=== PATIENT | female | born 1945 | race African-American/Black ===

== ENCOUNTER 2016-11-16 19:01 | Inpatient (IN) | payer MEDICARE, OTHER ==
[~2016-11-16] VITALS: Ht 167.6 cm; Wt 102.0 kg
[2016-11-16] MEDS ORDERED: ALBU6.7H PO (19:31)
[2016-11-16] MEDS ORDERED: WARF7.5 PO (19:31)
[2016-11-16] MEDS ORDERED: ADV250 PO (19:31)
[2016-11-16] MEDS ORDERED: POTA10TA PO (19:31)
[2016-11-16] MEDS ORDERED: WARF5TAB6 PO (19:31)
[2016-11-16] MEDS ORDERED: PRED10 PO (19:31)
[2016-11-16] MEDS ORDERED: LEVO125T95 PO (19:31)
[2016-11-16] MEDS ORDERED: CALC0.253 PO (19:31)
[2016-11-16] MEDS ORDERED: SPIR25 PO (19:31)
[2016-11-16] MEDS ORDERED: HYDR25TA84 PO (19:31)
[2016-11-16] MEDS ORDERED: METO50 PO (19:31)
[2016-11-16] MEDS ORDERED: OMEP20CA10 PO (19:31)
[2016-11-16] MEDS ORDERED: FLUO-126 PO (19:31)
[2016-11-16] MEDS ORDERED: FOLI1TAB15 PO (19:31)
[2016-11-16] MEDS ORDERED: FURO40TA5 PO (19:31)
[2016-11-16] MEDS ORDERED: 0.9% SODIUM CHLORIDE 5 ML NEB SOLUTION NEB ONE (19:59)
[2016-11-16] MEDS ORDERED: IPRATROPIUM BROMIDE 0.5 MG/2.5 ML NEB SOLUTION NEB ONE (20:00)
[2016-11-16] MEDS ORDERED: LEVALBUTEROL HCL 1.25 MG/0.5 ML NEB SOLUTION NEB ONE (20:00)
[2016-11-16] MEDS ORDERED: FUROSEMIDE 40 MG/4 ML VIAL IVP ONE (20:00)
[2016-11-16 20:06] LABS: EOSINOPHILS % (AUTO) 0 % (1.0-6.0); HEMATOCRIT 32.1 % (36-46); HEMOGLOBIN 10.4 g/dL (12.0-16.0); LYMPHOCYTES # (AUTO) 0.4 K/uL (1.0-4.8); LYMPHOCYTES % (AUTO) 3.3 % (22.0-44.0); MEAN CORPUSCULAR HEMOGLOBIN 30.5 pg (26.0-34.0); MEAN CORPUSCULAR HGB CONC 32.3 G/dL (31.0-37.0); MEAN CORPUSCULAR VOLUME 94 fL (80-100); MONOCYTES # (AUTO) 0.2 K/uL (0.1-1.0); MONOCYTES % (AUTO) 1.7 % (2.0-9.0); NEUTROPHILS # (AUTO) 12.2 K/uL (1.8-7.7); PLATELET COUNT (AUTO) 279 K/uL (150-450); RED CELL DISTRIBUTION WIDTH 16.8 % (11.5-14.5); WHITE BLOOD COUNT (AUTO) 12.9 K/uL (4.5-11.0)
[2016-11-16 20:13] LABS: ANION GAP 12 mmol/L (8-16); CALCIUM, TOTAL 10.2 mg/dL (8.8-10.5); CARBON DIOXIDE 22 mmol/L (22-29); CHLORIDE 108 mmol/L (98-107); CREATININE 1.48 mg/dL (0.60-1.30); GLOMERULAR FILTR. RATE CALC 42 mL/min (>60); SODIUM SERUM 142 mmol/L (136-145); UREA NITROGEN, BLOOD 20 mg/dL (7-18)
[2016-11-16 20:18] LABS: PROTHROMBIN TIME 31.4 SEC (9.4-11.6)
[2016-11-16 20:19] LABS: ALANINE AMINOTRANSFERASE 23 U/L (12-78); ALBUMIN 3.6 g/dL (3.4-5.0); ASPARTATE AMINOTRANSFERASE 22 U/L (15-37); BILIRUBIN,TOTAL 0.7 mg/dL (0.1-1.0); CREATINE KINASE, TOTAL 63 U/L (26-192); TOTAL PROTEIN, SERUM 7.8 g/dL (6.4-8.2)
[2016-11-16 20:33] LABS: B-TYPE NATRIURETIC PEPTIDE 441 pg/mL (0-100)
[2016-11-16 20:43] LABS: RBC MORPHOLOGY COMMENT NORMAL RBC MORPH
[2016-11-16 21:04] LABS: ADD UA MICROSCOPIC YES; APPEARANCE,URINE CLEAR (CLEAR); GLUCOSE, URINE (UA) NEGATIVE (NEGATIVE); KETONES,URINE NEGATIVE (NEGATIVE); LEUKOCYTE ESTERASE ,URINE NEGATIVE (NEGATIVE); OCCULT BLOOD,URINE TRACE (NEGATIVE); PROTEIN,URINE SEE CONFIRM (NEGATIVE)
[2016-11-16] MEDS ORDERED: 0.9% SODIUM CHLORIDE 10 ML SYRINGE IVP PRN (21:15)
[2016-11-16] MEDS ORDERED: ACETAMINOPHEN 325 MG TABLET PO PRN (21:15)
[2016-11-16] MEDS ORDERED: ONDANSETRON HCL 4 MG/2 ML VIAL IVP PRN (21:15)
[2016-11-16] MEDS: OXYGEN THERAPY IH SCH (21:15)
[2016-11-16] MEDS ORDERED: NITROGLYCERIN 2% (1 GM=INCH) PACKET TP ONE (21:15)
[2016-11-16 21:17] LABS: SULFOSALICYLIC ACID,URINE 2+ (Negative)
[2016-11-16 21:18] LABS: SQUAMOUS EPITHELIAL CELL,UR Moderate /LPF (None Seen)
[2016-11-16 22:27] VITALS: BP 153/91
[2016-11-17] MEDS ORDERED: 0.9% SODIUM CHLORIDE 10 ML SYRINGE IVP PRN (01:00)
[2016-11-17] MEDS ORDERED: ONDANSETRON HCL 4 MG/2 ML VIAL IVP PRN (01:00)
[2016-11-17] MEDS ORDERED: ACETAMINOPHEN 325 MG TABLET PO PRN (01:00)
[2016-11-17] MEDS ORDERED: MAGNESIUM HYDROXIDE SUSPENSION 30 ML UDCUP PO PRN (01:00)
[2016-11-17] MEDS ORDERED: OxyCODONE HCL/ACETAMINOPHEN 5-325 MG TABLET PO PRN ×2 (01:00)
[2016-11-17] MEDS: METOPROLOL TARTRATE 50 MG TABLET PO SCH ×3 (01:42→20:41)
[2016-11-17] MEDS: HydrALAZINE HCL 25 MG TABLET PO SCH ×3 (01:42→20:42)
[2016-11-17] MEDS: DOCUSATE SODIUM 100 MG CAPSULE PO SCH ×3 (01:42→20:41)
[2016-11-17 04:32] VITALS: BP 137/84
[2016-11-17] MEDS: LEVOTHYROXINE SODIUM 125 MCG TABLET PO SCH (06:23)
[2016-11-17 06:58] LABS: ALBUMIN 3.2 g/dL (3.4-5.0); BASOPHILS % (AUTO) 0.1 % (0.0-2.0); BILIRUBIN,TOTAL 0.6 mg/dL (0.1-1.0); CALCIUM, TOTAL 9.8 mg/dL (8.8-10.5); CREATININE 1.63 mg/dL (0.60-1.30); EOSINOPHILS % (AUTO) 0.1 % (1.0-6.0); HEMATOCRIT 28.6 % (36-46); HEMOGLOBIN 9.5 g/dL (12.0-16.0); LYMPHOCYTES # (AUTO) 0.7 K/uL (1.0-4.8); LYMPHOCYTES % (AUTO) 4.6 % (22.0-44.0); MEAN CORPUSCULAR HEMOGLOBIN 30.9 pg (26.0-34.0); MEAN CORPUSCULAR HGB CONC 33.1 G/dL (31.0-37.0); MEAN CORPUSCULAR VOLUME 93 fL (80-100); MONOCYTES # (AUTO) 1.1 K/uL (0.1-1.0); MONOCYTES % (AUTO) 7.6 % (2.0-9.0); NEUTROPHILS % (AUTO) 87.6 % (40.0-70.0); PLATELET COUNT (AUTO) 250 K/uL (150-450); POTASSIUM 3.9 mmol/L (3.5-5.1); RBC MORPHOLOGY COMMENT NORMAL RBC MORPH; RED BLOOD CELL COUNT(AUTO) 3.07 MIL/uL (4.00-5.20); RED CELL DISTRIBUTION WIDTH 16.7 % (11.5-14.5); TOTAL PROTEIN, SERUM 7.2 g/dL (6.4-8.2); WHITE BLOOD COUNT (AUTO) 14.8 K/uL (4.5-11.0)
[2016-11-17 07:41] VITALS: BP 139/62
[2016-11-17] MEDS: OXYGEN THERAPY IH SCH (07:55)
[2016-11-17] MEDS ORDERED: IPRATROPIUM BROMIDE 0.5 MG/2.5 ML NEB SOLUTION NEB ONE (08:00)
[2016-11-17] MEDS ORDERED: LEVALBUTEROL HCL 0.63 MG/3 ML NEB SOLUTION NEB ONE (08:00)
[2016-11-17] MEDS ORDERED: WARFARIN SODIUM 7.5 MG TABLET PO SCH ×2 (08:33→17:00)
[2016-11-17] MEDS ORDERED: [UNRECOGNIZED DRUG - OTHER] PO SCH (08:33)
[2016-11-17] MEDS ORDERED: WARFARIN SODIUM 5 MG TABLET PO SCH ×2 (08:33→17:00)
[2016-11-17] MEDS ORDERED: ALBUTEROL SULFATE HFA 90 MCG/PUFF 8 GM INHALER IH PRN (08:45)
[2016-11-17] MEDS ORDERED: FUROSEMIDE 40 MG/4 ML VIAL IVP SCH (09:00)
[2016-11-17] MEDS ORDERED: CALCITRIOL 0.25 MCG CAPSULE PO SCH (09:00)
[2016-11-17] MEDS ORDERED: SPIRONOLACTONE 25 MG TABLET PO SCH ×2 (09:00)
[2016-11-17] MEDS ORDERED: PANTOPRAZOLE SODIUM 40 MG/VIAL IVP SCH (09:00)
[2016-11-17] MEDS: FUROSEMIDE 40 MG/4 ML VIAL IVP SCH ×2 (09:24→20:42)
[2016-11-17] MEDS: FOLIC ACID 1 MG TABLET PO SCH (09:25)
[2016-11-17] MEDS: POTASSIUM CHLORIDE 10 MEQ ER TABLET PO SCH (09:26)
[2016-11-17] MEDS: OMEPRAZOLE 20 MG CAPSULE PO SCH (09:26)
[2016-11-17] MEDS: FLUoxetine HCL 20 MG CAPSULE PO SCH (09:27)
[2016-11-17 09:29] LABS: INR 3.2 (0.9-1.1); PROTHROMBIN TIME 34.1 SEC (9.4-11.6)
[2016-11-17 11:29] VITALS: BP 132/73
[2016-11-17 15:50] VITALS: BP 128/53
[2016-11-17] MEDS ORDERED: *CLINICAL-WARFARIN SODIUM DOSING CLINICAL SCH ×2 (19:45)
[2016-11-17 20:03] VITALS: BP 168/74
[2016-11-17] MEDS ORDERED: WARFARIN SODIUM-INR 2.5-3.5-RX DOSING PER PROTOCOL PO PRN (23:30)
[2016-11-18 01:58] VITALS: BP 147/69
[2016-11-18 04:37] VITALS: BP 116/63
[2016-11-18] MEDS: LEVOTHYROXINE SODIUM 125 MCG TABLET PO SCH (04:48)
[2016-11-18 06:23] LABS: BASOPHILS % (AUTO) 0.3 % (0.0-2.0); HEMATOCRIT 30.8 % (36-46); LYMPHOCYTES # (AUTO) 1.2 K/uL (1.0-4.8); LYMPHOCYTES % (AUTO) 10.8 % (22.0-44.0); MEAN CORPUSCULAR HEMOGLOBIN 30.7 pg (26.0-34.0); MEAN CORPUSCULAR HGB CONC 32.5 G/dL (31.0-37.0); MEAN CORPUSCULAR VOLUME 95 fL (80-100); MONOCYTES # (AUTO) 0.9 K/uL (0.1-1.0); MONOCYTES % (AUTO) 7.9 % (2.0-9.0); NEUTROPHILS # (AUTO) 8.8 K/uL (1.8-7.7); PLATELET COUNT (AUTO) 263 K/uL (150-450); RED BLOOD CELL COUNT(AUTO) 3.26 MIL/uL (4.00-5.20); RED CELL DISTRIBUTION WIDTH 16.6 % (11.5-14.5); WHITE BLOOD COUNT (AUTO) 11.3 K/uL (4.5-11.0)
[2016-11-18 06:31] LABS: INR 2.4 (0.9-1.1); PROTHROMBIN TIME 25.7 SEC (9.4-11.6)
[2016-11-18 06:57] LABS: ALBUMIN 3.3 g/dL (3.4-5.0); BILIRUBIN,TOTAL 0.3 mg/dL (0.1-1.0); CALCIUM, TOTAL 9.9 mg/dL (8.8-10.5); CREATININE 2.01 mg/dL (0.60-1.30); MAGNESIUM 1.5 mg/dL (1.80-2.40); POTASSIUM 3.9 mmol/L (3.5-5.1); TOTAL PROTEIN, SERUM 6.9 g/dL (6.4-8.2)
[2016-11-18 07:52] VITALS: BP 151/93
[2016-11-18] MEDS: FOLIC ACID 1 MG TABLET PO SCH (08:10)
[2016-11-18] MEDS: METOPROLOL TARTRATE 25 MG TABLET PO SCH ×2 (08:10→20:29)
[2016-11-18] MEDS: OMEPRAZOLE 20 MG CAPSULE PO SCH (08:11)
[2016-11-18] MEDS: DOCUSATE SODIUM 100 MG CAPSULE PO SCH ×2 (08:11→20:29)
[2016-11-18] MEDS: CALCITRIOL 0.25 MCG CAPSULE PO SCH (08:11)
[2016-11-18] MEDS: HydrALAZINE HCL 25 MG TABLET PO SCH ×2 (08:11→20:29)
[2016-11-18] MEDS: POTASSIUM CHLORIDE 10 MEQ ER TABLET PO SCH (08:11)
[2016-11-18] MEDS: FLUoxetine HCL 20 MG CAPSULE PO SCH (08:11)
[2016-11-18 11:59] VITALS: BP 122/68
[2016-11-18 16:48] VITALS: BP 157/77
[2016-11-18] MEDS ORDERED: WARFARIN SODIUM 5 MG TABLET PO SCH ×2 (17:00)
[2016-11-18] MEDS ORDERED: WARFARIN SODIUM 5 MG TABLET PO ONE (17:00)
[2016-11-18 20:05] VITALS: BP 143/67
[2016-11-19 00:17] VITALS: BP 140/69
[2016-11-19] MEDS: LEVOTHYROXINE SODIUM 125 MCG TABLET PO SCH (05:50)
[2016-11-19 06:11] LABS: PROTHROMBIN TIME 21.4 SEC (9.4-11.6)
[2016-11-19 06:31] LABS: ALBUMIN 3.1 g/dL (3.4-5.0); BILIRUBIN,TOTAL 0.3 mg/dL (0.1-1.0); CALCIUM, TOTAL 9.6 mg/dL (8.8-10.5); CREATININE 1.92 mg/dL (0.60-1.30); MAGNESIUM 1.7 mg/dL (1.80-2.40); POTASSIUM 3.9 mmol/L (3.5-5.1); TOTAL PROTEIN, SERUM 6.6 g/dL (6.4-8.2)
[2016-11-19 06:56] LABS: BASOPHILS % (AUTO) 0.4 % (0.0-2.0); EOSINOPHILS % (AUTO) 4.6 % (1.0-6.0); HEMATOCRIT 30.8 % (36-46); HEMOGLOBIN 10.1 g/dL (12.0-16.0); LYMPHOCYTES # (AUTO) 1.3 K/uL (1.0-4.8); LYMPHOCYTES % (AUTO) 10.9 % (22.0-44.0); MEAN CORPUSCULAR HEMOGLOBIN 30.9 pg (26.0-34.0); MEAN CORPUSCULAR HGB CONC 32.8 G/dL (31.0-37.0); MEAN CORPUSCULAR VOLUME 94 fL (80-100); MONOCYTES # (AUTO) 1.3 K/uL (0.1-1.0); MONOCYTES % (AUTO) 10.3 % (2.0-9.0); NEUTROPHILS % (AUTO) 73.8 % (40.0-70.0); PLATELET COUNT (AUTO) 276 K/uL (150-450); RED BLOOD CELL COUNT(AUTO) 3.27 MIL/uL (4.00-5.20); RED CELL DISTRIBUTION WIDTH 16.8 % (11.5-14.5); WHITE BLOOD COUNT (AUTO) 12.2 K/uL (4.5-11.0)
[2016-11-19 08:05] VITALS: BP 144/55
[2016-11-19] MEDS: CALCITRIOL 0.25 MCG CAPSULE PO SCH (08:37)
[2016-11-19] MEDS: HydrALAZINE HCL 25 MG TABLET PO SCH (08:37)
[2016-11-19] MEDS: POTASSIUM CHLORIDE 10 MEQ ER TABLET PO SCH (08:37)
[2016-11-19] MEDS: FLUoxetine HCL 20 MG CAPSULE PO SCH (08:37)
[2016-11-19] MEDS: OMEPRAZOLE 20 MG CAPSULE PO SCH (08:37)
[2016-11-19] MEDS: FOLIC ACID 1 MG TABLET PO SCH (08:37)
[2016-11-19] MEDS: METOPROLOL TARTRATE 25 MG TABLET PO SCH (08:37)
[2016-11-19] MEDS: DOCUSATE SODIUM 100 MG CAPSULE PO SCH (08:37)
[2016-11-19] MEDS ORDERED: FUROSEMIDE 40 MG TABLET PO SCH (09:15)
[2016-11-19 11:00] VITALS: BP 150/71
[2016-11-19] MEDS ORDERED: WARFARIN SODIUM 5 MG TABLET PO ONE (17:00)
== END 2016-11-19 16:50 | disposition home or self-care (01) | DRG 291 ==
LOC: EMS 19:05 → 5N 21:32
PROVIDERS: ADMIT Internal Medicine; ATTEND Internal Medicine
DX: I11.0 Hypertensive heart disease with heart failure (principal); J96.01 Acute respiratory failure with hypoxia; I27.2 Other secondary pulmonary hypertension; J44.1 Chronic obstructive pulmonary disease with (acute) exacerbation; D64.9 Anemia, unspecified; E11.9 Type 2 diabetes mellitus without complications; I50.43 Acute on chronic combined systolic (congestive) and diastolic (congestive) heart failure; I48.2 Chronic atrial fibrillation; F32.9 Major depressive disorder, single episode, unspecified; N28.9 Disorder of kidney and ureter, unspecified; E03.9 Hypothyroidism, unspecified; I09.9 Rheumatic heart disease, unspecified; K21.9 Gastro-esophageal reflux disease without esophagitis; Z86.73 Personal history of transient ischemic attack (TIA), and cerebral infarction without residual deficits; Z86.718 Personal history of other venous thrombosis and embolism; Z95.2 Presence of prosthetic heart valve; Z79.01 Long term (current) use of anticoagulants
CPT/HCPCS: 71250; 83735; 93005; 93306; 93970; 94640; 96374; 97162; 99285; J1940

== ENCOUNTER 2016-11-22 20:50 | Inpatient (IN) | payer MEDICARE, OTHER ==
[~2016-11-22] VITALS: Ht 167.6 cm; Wt 103.6 kg
[~2016-11-22 20:50] MED LIST: ADV250 PO; ALBU6.7H PO; CALC0.253 PO; FLUO-126 PO; FOLI1TAB15 PO; FURO40TA5 PO; HYDR25TA84 PO; LEVO125T95 PO; METO50 PO; OMEP20CA10 PO; POTA10TA PO; PRED10 PO; WARF5TAB6 PO; WARF7.5 PO
[2016-11-22] MEDS ORDERED: ONDANSETRON HCL 4 MG/2 ML VIAL IVP ONE (22:15)
[2016-11-22] MEDS ORDERED: HYDROmorphone 2 MG/ML SYRINGE IVP ONE (22:15)
[2016-11-22] MEDS ORDERED: BARIUM SULFATE 0.1% SUSPENSION 450 ML BOTTLE PO ONE (22:15)
[2016-11-22 22:16] LABS: BASOPHILS # (AUTO) 0.01 K/uL (0.00-0.20); BASOPHILS % (AUTO) 0.1 % (0.0-2.0); EOSINOPHILS # (AUTO) 0.37 K/uL (0.00-0.70); HEMATOCRIT 32.8 % (36-46); HEMOGLOBIN 10.6 g/dL (12.0-16.0); LYMPHOCYTES # (AUTO) 0.8 K/uL (1.0-4.8); MEAN CORPUSCULAR HEMOGLOBIN 30.1 pg (26.0-34.0); MEAN CORPUSCULAR HGB CONC 32.2 G/dL (31.0-37.0); MEAN CORPUSCULAR VOLUME 93 fL (80-100); MONOCYTES % (AUTO) 8.2 % (2.0-9.0); NEUTROPHILS # (AUTO) 9.8 K/uL (1.8-7.7); NEUTROPHILS % (AUTO) 81.6 % (40.0-70.0); PLATELET COUNT (AUTO) 269 K/uL (150-450); RED BLOOD CELL COUNT(AUTO) 3.51 MIL/uL (4.00-5.20); WHITE BLOOD COUNT (AUTO) 11.9 K/uL (4.5-11.0)
[2016-11-22 22:31] LABS: CREATININE 2.18 mg/dL (0.60-1.30); POTASSIUM 4.2 mmol/L (3.5-5.1)
[2016-11-22 22:37] LABS: ALBUMIN 3.5 g/dL (3.4-5.0); BILIRUBIN,TOTAL 0.1 mg/dL (0.1-1.0); TOTAL PROTEIN, SERUM 7.3 g/dL (6.4-8.2)
[2016-11-22 22:39] LABS: LACTIC ACID 1.1 mmol/L (0.4-2.0)
[2016-11-23] VITALS (7 sets, daily range): BP systolic 111–141; BP diastolic 54–79
[2016-11-23] MEDS ORDERED: HYDROmorphone 2 MG/ML SYRINGE IVP ONE (03:30)
[2016-11-23] MEDS ORDERED: 0.9% SODIUM CHLORIDE 10 ML SYRINGE IVP PRN (03:30)
[2016-11-23] MEDS ORDERED: SODIUM CHLORIDE 0.9% 250 ML IV ONE (03:30)
[2016-11-23] MEDS ORDERED: ONDANSETRON HCL 4 MG/2 ML VIAL IVP PRN ×2 (03:30→04:15)
[2016-11-23] MEDS ORDERED: ACETAMINOPHEN 325 MG TABLET PO PRN ×2 (03:30→04:15)
[2016-11-23] MEDS ORDERED: ONDANSETRON HCL 4 MG/2 ML VIAL IVP ONE (03:30)
[2016-11-23] MEDS ORDERED: ZOLPIDEM TARTRATE 5 MG TABLET PO PRN (04:15)
[2016-11-23] MEDS ORDERED: MAGNESIUM HYDROXIDE SUSPENSION 30 ML UDCUP PO PRN (04:15)
[2016-11-23] MEDS ORDERED: BISACODYL 10 MG RECTAL RECTAL SUPPOSITORY PR PRN (04:15)
[2016-11-23] MEDS ORDERED: MORPHINE SULFATE 4 MG/ML SYRINGE IVP PRN (04:15)
[2016-11-23] MEDS ORDERED: ALBUTEROL SULFATE 2.5 MG/0.5 ML NEB SOLUTION NEB PRN (04:15)
[2016-11-23] MEDS ORDERED: IPRATROPIUM BROMIDE 0.5 MG/2.5 ML NEB SOLUTION NEB PRN (04:15)
[2016-11-23] MEDS ORDERED: OxyCODONE HCL/ACETAMINOPHEN 5-325 MG TABLET PO PRN (04:15)
[2016-11-23] MEDS: DEXTROSE 5%-0.45% SODIUM CHL 1,000 ML IV SCH ×2 (05:27→20:17)
[2016-11-23] MEDS ORDERED: INFLUENZA VIRUS VACCINE QVS 2017-18 (3YR+)/PF 60 MCG/0.5 ML SYRINGE IM ONE (05:30)
[2016-11-23] MEDS: LEVOTHYROXINE SODIUM 125 MCG TABLET PO SCH (06:44)
[2016-11-23] MEDS: FOLIC ACID 1 MG TABLET PO SCH (08:37)
[2016-11-23] MEDS: CALCITRIOL 0.25 MCG CAPSULE PO SCH (08:37)
[2016-11-23] MEDS: FLUoxetine HCL 20 MG CAPSULE PO SCH (08:38)
[2016-11-23] MEDS: PANTOPRAZOLE SODIUM 40 MG/VIAL IVP SCH (08:38)
[2016-11-23] MEDS: FUROSEMIDE 40 MG TABLET PO SCH (08:40)
[2016-11-23] MEDS ORDERED: METOPROLOL TARTRATE 50 MG TABLET PO SCH (09:00)
[2016-11-23] MEDS: HydrALAZINE HCL 25 MG TABLET PO SCH ×2 (09:00→20:18)
[2016-11-23 13:24] LABS: PROTHROMBIN TIME 47.7 SEC (9.4-11.6)
[2016-11-23 13:28] LABS: INR 4.5 (0.9-1.1)
[2016-11-23] MEDS ORDERED: WARFARIN SODIUM 5 MG TABLET PO SCH (17:00)
[2016-11-24] MEDS: DEXTROSE 5%-0.45% SODIUM CHL 1,000 ML IV SCH ×2 (02:53→10:30)
[2016-11-24 04:20] VITALS: BP 103/50
[2016-11-24 06:27] LABS: BASOPHILS # (AUTO) 0.03 K/uL (0.00-0.20); BASOPHILS % (AUTO) 0.3 % (0.0-2.0); EOSINOPHILS # (AUTO) 0.39 K/uL (0.00-0.70); EOSINOPHILS % (AUTO) 3.96 % (1.0-6.0); HEMATOCRIT 28.5 % (36-46); HEMOGLOBIN 9.4 g/dL (12.0-16.0); LYMPHOCYTES # (AUTO) 0.9 K/uL (1.0-4.8); LYMPHOCYTES % (AUTO) 9.4 % (22.0-44.0); MEAN CORPUSCULAR HEMOGLOBIN 30.8 pg (26.0-34.0); MEAN CORPUSCULAR HGB CONC 32.9 G/dL (31.0-37.0); MEAN CORPUSCULAR VOLUME 93 fL (80-100); MONOCYTES # (AUTO) 0.9 K/uL (0.1-1.0); MONOCYTES % (AUTO) 8.6 % (2.0-9.0); NEUTROPHILS # (AUTO) 7.7 K/uL (1.8-7.7); NEUTROPHILS % (AUTO) 77.7 % (40.0-70.0); PLATELET COUNT (AUTO) 222 K/uL (150-450); RED BLOOD CELL COUNT(AUTO) 3.05 MIL/uL (4.00-5.20); RED CELL DISTRIBUTION WIDTH 16.6 % (11.5-14.5); WHITE BLOOD COUNT (AUTO) 9.9 K/uL (4.5-11.0)
[2016-11-24] MEDS: LEVOTHYROXINE SODIUM 125 MCG TABLET PO SCH (06:28)
[2016-11-24 07:00] LABS: BILIRUBIN,TOTAL 0.3 mg/dL (0.1-1.0); CALCIUM, TOTAL 8.7 mg/dL (8.8-10.5); CREATININE 2.01 mg/dL (0.60-1.30); MAGNESIUM 1.7 mg/dL (1.80-2.40); PHOSPHORUS 3.8 mg/dL (2.5-4.9); POTASSIUM 3.8 mmol/L (3.5-5.1); TOTAL PROTEIN, SERUM 5.8 g/dL (6.4-8.2)
[2016-11-24 07:02] LABS: INR 5.2 (0.9-1.1)
[2016-11-24 07:36] VITALS: BP 130/67
[2016-11-24] MEDS: FUROSEMIDE 40 MG TABLET PO SCH (08:58)
[2016-11-24] MEDS: FLUoxetine HCL 20 MG CAPSULE PO SCH (08:58)
[2016-11-24] MEDS: HydrALAZINE HCL 25 MG TABLET PO SCH (08:58)
[2016-11-24] MEDS: FOLIC ACID 1 MG TABLET PO SCH (08:58)
[2016-11-24] MEDS: CALCITRIOL 0.25 MCG CAPSULE PO SCH (08:58)
[2016-11-24] MEDS: PANTOPRAZOLE SODIUM 40 MG/VIAL IVP SCH (08:58)
[2016-11-24 11:00] LABS: HEMOGLOBIN A1C 6.7 % (4.5-6.2)
[2016-11-24 11:34] VITALS: BP 123/65
[2016-11-24] MEDS ORDERED: WARFARIN SODIUM 7.5 MG TABLET PO SCH (17:00)
== END 2016-11-24 15:40 | disposition home or self-care (01) | DRG 682 ==
LOC: EMS 20:52 → 5N 11-23 03:37
PROVIDERS: ADMIT Internal Medicine; ATTEND Internal Medicine
DX: N17.9 Acute kidney failure, unspecified (principal); I50.31 Acute diastolic (congestive) heart failure; E44.0 Moderate protein-calorie malnutrition; R18.8 Other ascites; E11.22 Type 2 diabetes mellitus with diabetic chronic kidney disease; I48.2 Chronic atrial fibrillation; J44.9 Chronic obstructive pulmonary disease, unspecified; N20.0 Calculus of kidney; E03.9 Hypothyroidism, unspecified; I13.0 Hypertensive heart and chronic kidney disease with heart failure and stage 1 through stage 4 chronic kidney disease, or unspecified chronic kidney disease; N18.3 Chronic kidney disease, stage 3 (moderate); K80.20 Calculus of gallbladder without cholecystitis without obstruction; K21.9 Gastro-esophageal reflux disease without esophagitis; D63.8 Anemia in other chronic diseases classified elsewhere; E66.9 Obesity, unspecified; Z86.73 Personal history of transient ischemic attack (TIA), and cerebral infarction without residual deficits; Z68.36 Body mass index [BMI] 36.0-36.9, adult; Z79.01 Long term (current) use of anticoagulants; Z90.49 Acquired absence of other specified parts of digestive tract; Z95.2 Presence of prosthetic heart valve
CPT/HCPCS: 74000; 74176; 83036; 83605; 83735; 84100; 87081; 90471; 93005; 96374; 96375; 96376; 99285; C9113; J1170; J2270; J2405; J7040

== ENCOUNTER 2016-12-08 18:47 | Emergency (ER) | payer MEDICARE, OTHER ==
[~2016-12-08] VITALS: Ht 167.6 cm; Wt 100.0 kg
[~2016-12-08 18:47] MED LIST changes: -WARF5TAB6 PO; -WARF7.5 PO
[2016-12-08 20:12] LABS: BASOPHILS % (AUTO) 0.4 % (0.0-2.0); EOSINOPHILS % (AUTO) 3.8 % (1.0-6.0); HEMATOCRIT 34.2 % (36-46); HEMOGLOBIN 11.1 g/dL (12.0-16.0); LYMPHOCYTES # (AUTO) 1.1 K/uL (1.0-4.8); LYMPHOCYTES % (AUTO) 9.1 % (22.0-44.0); MEAN CORPUSCULAR HEMOGLOBIN 30.2 pg (26.0-34.0); MEAN CORPUSCULAR HGB CONC 32.4 G/dL (31.0-37.0); MEAN CORPUSCULAR VOLUME 93 fL (80-100); MONOCYTES # (AUTO) 0.8 K/uL (0.1-1.0); MONOCYTES % (AUTO) 6.7 % (2.0-9.0); PLATELET COUNT (AUTO) 345 K/uL (150-450); RED BLOOD CELL COUNT(AUTO) 3.66 MIL/uL (4.00-5.20); RED CELL DISTRIBUTION WIDTH 16.9 % (11.5-14.5); WHITE BLOOD COUNT (AUTO) 12.5 K/uL (4.5-11.0)
[2016-12-08] MEDS ORDERED: ACETAMINOPHEN 500 MG TABLET PO ONE (20:15)
[2016-12-08 20:19] LABS: ANION GAP 12 mmol/L (8-16); CALCIUM, TOTAL 10.5 mg/dL (8.8-10.5); CARBON DIOXIDE 25 mmol/L (22-29); CHLORIDE 105 mmol/L (98-107); CREATININE 1.75 mg/dL (0.60-1.30); GLOMERULAR FILTR. RATE CALC 35 mL/min (>60); POTASSIUM 3.5 mmol/L (3.5-5.1); SODIUM SERUM 142 mmol/L (136-145); UREA NITROGEN, BLOOD 28 mg/dL (7-18)
[2016-12-08 20:22] LABS: INR 3.8 (0.9-1.1); PROTHROMBIN TIME 40.4 SEC (9.4-11.6)
[2016-12-08 20:25] LABS: ALANINE AMINOTRANSFERASE 14 U/L (12-78); ALBUMIN 3.8 g/dL (3.4-5.0); ASPARTATE AMINOTRANSFERASE 14 U/L (15-37); BILIRUBIN,TOTAL 0.4 mg/dL (0.1-1.0); CREATINE KINASE, TOTAL 72 U/L (26-192); TOTAL PROTEIN, SERUM 8.1 g/dL (6.4-8.2)
[2016-12-08 20:46] LABS: THYROID STIMULATING HORMONE 2.38 uIU/mL (0.36-3.74)
[2016-12-08 20:46] LABS: APPEARANCE,URINE CLEAR (CLEAR); GLUCOSE, URINE (UA) NEGATIVE (NEGATIVE); KETONES,URINE NEGATIVE (NEGATIVE); LEUKOCYTE ESTERASE ,URINE NEGATIVE (NEGATIVE); OCCULT BLOOD,URINE NEGATIVE (NEGATIVE); PROTEIN,URINE TRACE (NEGATIVE)
[2016-12-08 20:50] LABS: ADD UA MICROSCOPIC NO
[2016-12-08 21:01] LABS: B-TYPE NATRIURETIC PEPTIDE 271 pg/mL (0-100)
[2016-12-08] MEDS ORDERED: HydrALAZINE HCL 25 MG TABLET PO ONE (21:30)
[2016-12-08 22:32] VITALS: BP 152/90
== END 2016-12-08 23:00 | disposition home or self-care (01) ==
LOC: EMS 18:48
DX: I10 Essential (primary) hypertension (principal); R51 Headache; I50.9 Heart failure, unspecified; I48.91 Unspecified atrial fibrillation; E11.9 Type 2 diabetes mellitus without complications; E03.9 Hypothyroidism, unspecified; J44.9 Chronic obstructive pulmonary disease, unspecified
CPT/HCPCS: 84443; 93005; 99285